=== PATIENT | female | born 1940 | race Caucasian/White ===

== ENCOUNTER 2018-08-01 05:53 | Emergency (ER) | payer MEDICARE, MEDICAID ==
[~2018-08-01] VITALS: Ht 152.4 cm; Wt 69.9 kg
[~2018-08-01 05:53] MED LIST: ACET-822 PO; LEVO50TA8 PO; METF-440; OMEP10CA4 PO; ROSU10TA PO; VERA180C2 PO; VESICARE PO
[2018-08-01] MEDS ORDERED: DOXY100C2 PO (06:18)
[2018-08-01] MEDS ORDERED: SULF1TAB48 PO (06:18)
[2018-08-01] MEDS ORDERED: LEVO75TA7 PO (06:18)
--- NOTE | 2018-08-01 06:30 | NUR ---
Dr. Sofia at bedside for MSE.
[2018-08-01] MEDS ORDERED: ONDANSETRON 4 MG/2 ML VIAL IV ONE (06:45)
[2018-08-01] MEDS ORDERED: ONDANSETRON 4 MG/2 ML VIAL ONE (06:46)
[2018-08-01 06:48] LABS: BASOPHILS % (AUTO) 0.7 % (0.0-2.0); EOSINOPHILS % (AUTO) 0.3 % (0.0-7.0); HEMATOCRIT 40.5 % (31.2-41.9); HEMOGLOBIN 13.4 g/dL (10.9-14.3); LYMPHOCYTES % (AUTO) 13.6 % (20.5-51.5); MEAN CORPUSCULAR HEMOGLOBIN 29.2 uug (24.7-32.8); MEAN CORPUSCULAR HGB CONC 33 g/dL (32.3-35.6); MEAN CORPUSCULAR VOLUME 88.3 fL (75.5-95.3); MONOCYTES # (AUTO) 0.4 K/uL (2.0-10.0); MONOCYTES % (AUTO) 5.5 % (0.0-11.0); NEUTROPHILS # (AUTO) 5.8 K/uL (1.8-8.9); NEUTROPHILS % (AUTO) 79.9 % (38.5-71.5); PLATELET COUNT (AUTO) 224 K/uL (179-408); RED BLOOD CELL COUNT(AUTO) 4.59 MIL/uL (3.63-4.92); WHITE BLOOD COUNT (AUTO) 7.3 K/uL (3.8-11.8)
--- NOTE | 2018-08-01 06:56 | NUR ---
Report given to Mauro knapp.
[2018-08-01 06:57] LABS: CARBON DIOXIDE 27 mmol/L (21-32); CHLORIDE 106 mmol/L (98-107); CREATININE 1.1 mg/dL (0.6-1.3); GLUCOSE 102 mg/dL (74-106); POTASSIUM 3.8 mmol/L (3.5-5.1); UREA NITROGEN, BLOOD 10 mg/dL (7-18)
[2018-08-01 07:02] LABS: ALANINE AMINOTRANSFERASE 19 U/L (14-59); ALKALINE PHOSPHATASE 105 U/L (50-136); ASPARTATE AMINOTRANSFERASE 22 U/L (15-37); BILIRUBIN,DIRECT 0.1 mg/dL (0.0-0.2); BILIRUBIN,TOTAL 0.4 mg/dL (0.2-1.0); LIPASE 189 U/L (73-393); TOTAL PROTEIN, SERUM 7.8 g/dL (6.4-8.2)
[2018-08-01 09:22] LABS: ABG BASE EXCESS 0.1 mmol/L; ABG HCO3 22.9 mmol/L; ABG PH 7.473 (7.350-7.450); ABG PO2 84.1 mmHg (75.0-100.0); ABG SITE RIGHT RADIAL; ABG TOTAL HEMOGLOBIN 13.5 G/dL (12.0-16.0); COHb 1.1 % (0.5-1.5); MetHb 0.3 % (0.0-1.5); O2Hb 95.7 % (94.0-97.0); VENT MODE ROOM AIR
[2018-08-01] MEDS ORDERED: IV NORMAL SALINE 250 ML IV ONE (09:25)
[2018-08-01] MEDS ORDERED: IOHEXOL 350 100 ML INFUS..BTL ONE (09:25)
[2018-08-01] MEDS ORDERED: SWABABLE VALVE TRANSFER SET EA MC ONE (09:26)
[2018-08-01] MEDS ORDERED: NORMAL SALINE FLUSH 10 ML DISP.SYRIN ONE (09:27)
--- NOTE | 2018-08-01 12:01 | NUR ---
Patient discharged to home in stable conditon. Written and verbal after care instructions given. Patient verbalizes understanding of instructions.
== END 2018-08-01 12:02 | disposition home or self-care (01) ==
LOC: ER 05:56
DX: R07.9 Chest pain, unspecified (principal); R11.0 Nausea; R10.9 Unspecified abdominal pain; I10 Essential (primary) hypertension; Z88.0 Allergy status to penicillin
CPT/HCPCS: 36415; 36600; 70030-TC; 71045; 71275; 83690; 85025; 93005; A4663; J2405; J3490; J7050; Q9967

== ENCOUNTER 2018-12-07 13:25 | Inpatient (IN) | payer MEDICARE, MEDICAID ==
[~2018-12-07] VITALS: Ht 157.5 cm; Wt 69.9 kg
[~2018-12-07 13:25] MED LIST changes: +DOXY100C2 PO; -LEVO50TA8 PO; +LEVO75TA7 PO; -OMEP10CA4 PO; +OMEP10CA5 PO; -ROSU10TA PO; +ROSU10TA2 PO; +SULF1TAB48 PO; -VERA180C2 PO
[2018-12-07] MEDS ORDERED: DILT-32 PO (13:56)
[2018-12-07] MEDS ORDERED: LEVO75TA7 PO (13:56)
[2018-12-07] MEDS ORDERED: MIRA25TA PO (13:56)
[2018-12-07] MEDS ORDERED: METF-440 PO (13:56)
[2018-12-07] MEDS ORDERED: SIMV10TA6 PO (13:56)
[2018-12-07] MEDS ORDERED: DIATR MEGLU/DIATRIZOATE SODIUM 30 ML SOLUTION PO ONE (14:00)
[2018-12-07 14:16] LABS: BASOPHILS # (AUTO) 0.1 K/uL (0.0-8.0); BASOPHILS % (AUTO) 0.7 % (0.0-2.0); EOSINOPHILS % (AUTO) 0.2 % (0.0-7.0); HEMATOCRIT 39.4 % (31.2-41.9); HEMOGLOBIN 12.8 g/dL (10.9-14.3); LYMPHOCYTES # (AUTO) 1.6 K/uL (20.0-40.0); LYMPHOCYTES % (AUTO) 20.5 % (20.5-51.5); MEAN CORPUSCULAR HEMOGLOBIN 28.5 uug (24.7-32.8); MEAN CORPUSCULAR HGB CONC 33 g/dL (32.3-35.6); MEAN CORPUSCULAR VOLUME 87.6 fL (75.5-95.3); MONOCYTES # (AUTO) 0.8 K/uL (2.0-10.0); MONOCYTES % (AUTO) 9.7 % (0.0-11.0); NEUTROPHILS # (AUTO) 5.5 K/uL (1.8-8.9); NEUTROPHILS % (AUTO) 68.9 % (38.5-71.5); PLATELET COUNT (AUTO) 238 K/uL (179-408)
[2018-12-07 14:26] LABS: CARBON DIOXIDE 28 mmol/L (21-32); CHLORIDE 107 mmol/L (98-107); CREATININE 0.8 mg/dL (0.6-1.3); GLUCOSE 74 mg/dL (74-106); POTASSIUM 4.2 mmol/L (3.5-5.1); UREA NITROGEN, BLOOD 11 mg/dL (7-18)
[2018-12-07 14:31] LABS: ALANINE AMINOTRANSFERASE 24 U/L (14-59); ALKALINE PHOSPHATASE 109 U/L (50-136); ASPARTATE AMINOTRANSFERASE 23 U/L (15-37); BILIRUBIN,DIRECT 0.1 mg/dL (0.0-0.2); BILIRUBIN,TOTAL 0.4 mg/dL (0.2-1.0); TOTAL PROTEIN, SERUM 7.6 g/dL (6.4-8.2)
[2018-12-07] MEDS ORDERED: DIATR MEGLU/DIATRIZOATE SODIUM 30 ML SOLUTION ONE (14:51)
--- NOTE | 2018-12-07 18:21 | NUR ---
PT TRANSFERED TO FLOOR I NSTABLE CONDITION. PT REMAINED CALM AND COMFORTABLE THE WHOLE ER STAY.PT PAIN TOLERABLE LEVEL.
[2018-12-07 18:25] VITALS: BP 131/48
--- NOTE | 2018-12-07 18:25 | NUR ---
Pt arrived via gurney. Calm, cooperative, ambulatory, aox4, no signs of respiratory distress at this time, denies pain, c/o dizziness. Pt can verbalize what had happened to her. She states that she remembers blacking out in the bathroom. Continue to monitor pt.
[2018-12-07 19:11] LABS: *BILIRUBIN,URIN NEGATIVE (NEGATIVE); *BLOOD, URINE Trace-intact (NEGATIVE); *CLARITY,URINE SLIGHTLY CLOUDY (CLEAR); *COLOR,URINE YELLOW (YELLOW); *KETONES,URINE NEGATIVE (NEGATIVE); *UROBILINOGEN,URINE 0.2 E.U./dl (NORMAL); LEUKOCYTE ESTERASE ,URINE NEGATIVE (NEGATIVE); NITRITE, URINE NEGATIVE (NEGATIVE); PH,URINE 8.5 (5.0-8.0); UGLUCOSE NEGATIVE (NEGATIVE)
[2018-12-07 19:15] LABS: BACTERIA,URINE RARE /HPF (NONE SEEN); RBC,URINE 0-3 /HPF (0-3); SQUAMOUS EPITHELIAL CELL,UR FEW /HPF (NONE SEEN)
--- NOTE | 2018-12-07 19:45 | NUR ---
Rec'd pt in bed awake, A&O x4. No s/s of acute distress noted. Denies pain. On monitoring for s/p syncopal episode at home while on the toilet and abd pain. Pt with device on left upper arm placed by her primary physician to monitor her blood glucose x 1 week per pt. No s/s of complications to site. Call light within reach. All needs met at this time. Will continue to monitor.
[2018-12-07 20:06] VITALS: BP 118/48
[2018-12-07] MEDS ORDERED: DEXTROSE 50% 50 ML DISP.SYRIN IV PRN (21:45)
[2018-12-07] MEDS ORDERED: BISACODYL 10 MG SUPP.RECT RC PRN (21:45)
[2018-12-07] MEDS ORDERED: INSULIN REGULAR, HUMAN 300 UNIT/3 ML VIAL SQ PRN (21:45)
[2018-12-07] MEDS ORDERED: ONDANSETRON 4 MG/2 ML VIAL IV PRN (21:45)
[2018-12-07] MEDS ORDERED: ACETAMINOPHEN 325 MG TABLET PO PRN (21:45)
[2018-12-07] MEDS ORDERED: TEMAZEPAM 7.5 MG CAPSULE PO PRN (21:45)
[2018-12-07] MEDS ORDERED: HYDROCODONE/APAP 5-325MG TABLET PO PRN (21:45)
[2018-12-07] MEDS ORDERED: MAGNESIUM CITRATE 296 ML BOTTLE PO ONE (22:00)
[2018-12-07] MEDS: DOCUSATE SODIUM 100 MG CAPSULE PO SCH (22:44)
[2018-12-07] MEDS ORDERED: MAGNESIUM CITRATE 296 ML BOTTLE ONE (22:56)
[2018-12-08 00:53] VITALS: BP 122/50
[2018-12-08 04:00] VITALS: BP 131/60
[2018-12-08] MEDS ORDERED: MAGNESIUM CITRATE 296 ML BOTTLE PO ONE (06:00)
[2018-12-08] MEDS: PANTOPRAZOLE SODIUM 40 MG TABLET.DR PO SCH (06:05)
[2018-12-08 06:22] LABS: BASOPHILS % (AUTO) 0.8 % (0.0-2.0); EOSINOPHILS # (AUTO) 0.1 K/uL (0.0-0.7); EOSINOPHILS % (AUTO) 1.1 % (0.0-7.0); HEMATOCRIT 35.8 % (31.2-41.9); HEMOGLOBIN 12.1 g/dL (10.9-14.3); LYMPHOCYTES # (AUTO) 1.6 K/uL (20.0-40.0); LYMPHOCYTES % (AUTO) 27.6 % (20.5-51.5); MEAN CORPUSCULAR HEMOGLOBIN 29.5 uug (24.7-32.8); MEAN CORPUSCULAR HGB CONC 34 g/dL (32.3-35.6); MEAN CORPUSCULAR VOLUME 86.9 fL (75.5-95.3); MONOCYTES # (AUTO) 0.6 K/uL (2.0-10.0); MONOCYTES % (AUTO) 11.2 % (0.0-11.0); NEUTROPHILS # (AUTO) 3.4 K/uL (1.8-8.9); NEUTROPHILS % (AUTO) 59.3 % (38.5-71.5); PLATELET COUNT (AUTO) 201 K/uL (179-408); RED BLOOD CELL COUNT(AUTO) 4.12 MIL/uL (3.63-4.92); WHITE BLOOD COUNT (AUTO) 5.7 K/uL (3.8-11.8)
--- NOTE | 2018-12-08 06:24 | NUR ---
Re-ordered Mg Citrate for constipation d/t pt preferred to take it in am. However, pt did not tolerate the taste of it at this time. Pt complained that it is too sour and will give her heartburn. Per pt, the Colace she rec'd last night is already working and that she already had a small BM 30 mins ago. Will follow up with MD. Addendum: 12/08/18 at 0627 by AMI JONES RN Pt only took two sips of the mg citrate.
[2018-12-08] MEDS: BLOOD SUGAR DIAGNOSTIC 1 EACH STRIP VI SCH ×4 (06:30→20:35)
[2018-12-08] MEDS: LEVOTHYROXINE SODIUM 75 MCG TABLET PO SCH (06:30)
[2018-12-08 06:36] LABS: IRON, SERUM 65 ug/dL (50-175)
--- NOTE | 2018-12-08 06:38 | NUR ---
Pt in bed awake, watching TV. Denies abdominal pain. Was able to tolerate ambulating to bathroom during shift without episode of dizziness. All needs met at this time Will cont to monitor. Will endorse to oncoming nurse.
[2018-12-08 06:49] LABS: ALANINE AMINOTRANSFERASE 15 U/L (14-59); ALKALINE PHOSPHATASE 91 U/L (50-136); ASPARTATE AMINOTRANSFERASE 20 U/L (15-37); BILIRUBIN,TOTAL 0.5 mg/dL (0.2-1.0); CARBON DIOXIDE 28 mmol/L (21-32); CHLORIDE 107 mmol/L (98-107); CHOLESTEROL 149 mg/dL (<200); CREATININE 0.8 mg/dL (0.6-1.3); GLUCOSE 102 mg/dL (74-106); HDL CHOLESTEROL 65 mg/dL (40-60); MAGNESIUM 1.6 mg/dL (1.8-2.4); PHOSPHOROUS 3.4 mg/dL (2.5-4.9); POTASSIUM 3.9 mmol/L (3.5-5.1); TOTAL PROTEIN, SERUM 6.6 g/dL (6.4-8.2); TRIGLYCERIDES 82 MG/DL (30-150)
[2018-12-08 07:04] LABS: UREA NITROGEN, BLOOD 10 mg/dL (7-18)
--- NOTE | 2018-12-08 07:15 | NUR ---
ALERT AND ORIENTED AMBULATORY AND BRP , NO SOB NOTED NO PAIN NOTED.
[2018-12-08] MEDS: METFORMIN HCL 500 MG TABLET PO SCH ×2 (08:26→17:20)
[2018-12-08] MEDS: DILTIAZEM HCL CD 120 MG CAP.SR.24H PO SCH (08:29)
[2018-12-08 11:07] VITALS: BP 120/47
[2018-12-08] MEDS: IV NS 1000 ML 1,000 ML IV PRN (11:45)
[2018-12-08 12:02] VITALS: BP_SYST 129; BP_SYST 132; BP_SYST 134; BP_DIAS 51; BP_DIAS 67; BP_DIAS 68
[2018-12-08] MEDS: MAGNESIUM SULFATE/D5W 100 ML IV SCH ×2 (12:50→13:56)
--- NOTE | 2018-12-08 13:25 | NUR ---
GAVE REPORT TO HOMER, RN, PATIENT ON STABLE CONDITION, ABLE TO MAKE NEEDS KNOWN, BRP, WITH 1V ON RIGHT HAND. NO PAIN OR DISCOMFORT AT THIS TIME, NO SOB NOTED AT THIS TIME.NO SYNCOPE EPISODE AT THIS TIME.
--- NOTE | 2018-12-08 13:30 | NUR ---
Pt alert and oriented x 4. Pt ambulatory. PT denies any c/o pain. IV intact. Call light is within reach.
[2018-12-08 15:07] VITALS: BP 112/67
--- NOTE | 2018-12-08 18:30 | NUR ---
Pt is in no acute distress.
[2018-12-08 20:00] VITALS: BP 112/51
[2018-12-08] MEDS: DOCUSATE SODIUM 100 MG CAPSULE PO SCH (20:00)
--- NOTE | 2018-12-08 20:00 | NUR ---
Received patient awake & alert, self care ambulatory. No SOB denies chest pain. IVF infusing well. Tele shows NSR. Vital signs WNL.
[2018-12-08] MEDS ORDERED: ATORVASTATIN 10 MG TABLET PO SCH (22:00)
[2018-12-09] VITALS: BP 127/51
[2018-12-09 04:00] VITALS: BP 124/54
[2018-12-09] MEDS: LEVOTHYROXINE SODIUM 75 MCG TABLET PO SCH (06:33)
[2018-12-09] MEDS: PANTOPRAZOLE SODIUM 40 MG TABLET.DR PO SCH (06:33)
[2018-12-09] MEDS: BLOOD SUGAR DIAGNOSTIC 1 EACH STRIP VI SCH ×2 (06:48→11:52)
[2018-12-09 06:57] LABS: CARBON DIOXIDE 30 mmol/L (21-32); CHLORIDE 107 mmol/L (98-107); CREATININE 0.8 mg/dL (0.6-1.3); GLUCOSE 102 mg/dL (74-106); POTASSIUM 4.2 mmol/L (3.5-5.1); UREA NITROGEN, BLOOD 11 mg/dL (7-18)
[2018-12-09] MEDS: IV NS 1000 ML 1,000 ML IV PRN (06:57)
--- NOTE | 2018-12-09 07:00 | NUR ---
No significant change. Vital signs WNL Sinus rhythm on monitor. No acute distress.
--- NOTE | 2018-12-09 08:00 | NUR ---
Patient awake, alert/oriented x4. ambulatory. Fall precautions implemented. Scheduled MRI brain without contrast at [facility] at noon today. Scheduled ambulance pick-up at 11:45. MRI checklist will be completed. No signs of distress. stable condition. Call light within reach. SR on telemetry.
[2018-12-09 08:31] VITALS: BP 143/74
[2018-12-09] MEDS: METFORMIN HCL 500 MG TABLET PO SCH (08:49)
[2018-12-09] MEDS: DILTIAZEM HCL CD 120 MG CAP.SR.24H PO SCH (08:49)
[2018-12-09] MEDS ORDERED: MYRBETRIQ 25 MG PO SCH (09:00)
[2018-12-09] MEDS ORDERED: [UNRECOGNIZED DRUG - OTHER] PO SCH (09:00)
[2018-12-09 11:11] VITALS: BP 147/71
--- NOTE | 2018-12-09 11:54 | NUR ---
PT's blood sugar 75. offered patient masoud muse. patient is stable. no signs of distress. a/ox4.
[2018-12-09 15:05] VITALS: BP 131/71
--- NOTE | 2018-12-09 16:08 | NUR ---
D/C ORDERS RECEIVED NOTED AND CARRIED OUT,D/C INSTRUCTION AND EDUCATION GIVEN TO THE PT,D/C LEI PER MD ORDERS PER NEURO PT CAN GO HOME,.PT SAID SHE WILL MAKE HER APPOINTMENT WITH HER DR,PT LEFT THE FACILITY VIA [facility] IN STABLE CONDITION
== END 2018-12-09 16:25 | disposition home or self-care (01) | DRG 74 ==
LOC: ER 13:25 → TELE 18:08
PROVIDERS: ADMIT Internal Medicine; ATTEND Internal Medicine
DX: G90.8 Other disorders of autonomic nervous system (principal); D68.59 Other primary thrombophilia; R55 Syncope and collapse; M50.31 Other cervical disc degeneration, high cervical region; M48.02 Spinal stenosis, cervical region; D32.0 Benign neoplasm of cerebral meninges; K44.9 Diaphragmatic hernia without obstruction or gangrene; E66.9 Obesity, unspecified; Z68.28 Body mass index [BMI] 28.0-28.9, adult; K59.09 Other constipation; E03.9 Hypothyroidism, unspecified; I70.0 Atherosclerosis of aorta; Z79.899 Other long term (current) drug therapy; Z80.8 Family history of malignant neoplasm of other organs or systems; E11.9 Type 2 diabetes mellitus without complications; Z79.84 Long term (current) use of oral hypoglycemic drugs; I05.0 Rheumatic mitral stenosis; I10 Essential (primary) hypertension; R01.1 Cardiac murmur, unspecified; S69.92XA Unspecified injury of left wrist, hand and finger(s), initial encounter; W18.11XA Fall from or off toilet without subsequent striking against object, initial encounter; Y93.E8 Activity, other personal hygiene; Y92.012 Bathroom of single-family (private) house as the place of occurrence of the external cause; M19.042 Primary osteoarthritis, left hand
CPT/HCPCS: 36415; 70030-TC; 70450; 70551; 71045; 72125; 73130; 83550; 83605; 83735; 84100; 85025; 85730; 87040; 87086; 93005; 93307; 93880; A4663; G0378; J1815; J3475; J7030; Q9963

== ENCOUNTER 2019-03-28 05:05 | Emergency (ER) | payer MEDICARE, MEDICAID ==
[~2019-03-28] VITALS: Ht 154.9 cm; Wt 68.9 kg
[~2019-03-28 05:05] MED LIST changes: +DILT-32 PO; -DOXY100C2 PO; -METF-440; +METF-440 PO; +MIRA25TA PO; -OMEP10CA5 PO; -SULF1TAB48 PO; -VESICARE PO
--- NOTE | 2019-03-28 05:30 | NUR ---
Received pt. in bed 2B A/O x 4 speaking clearly in full complete sentences. Lying supine on gurney with HOB elevated 45 degrees. Pt. stated to this public relations writer since 0300 am has had left sided neck pain radiating up to mid scalp constant sharp 8/10 today. She also stated she has been under alot of stress last couple of days. Awaiting to be seen by Dr. Acharya.
[2019-03-28] MEDS ORDERED: ACETAMINOPHEN ES 500 MG TABLET PO ONE (05:45)
[2019-03-28] MEDS ORDERED: ACETAMINOPHEN ES 500 MG TABLET ONE (05:54)
--- NOTE | 2019-03-28 06:14 | NUR ---
Pt. went and returned from cat scan via wheelchair with transporter Mickey. Pt. A/O x 4 and speaks clearly in full complete sentences.
== END 2019-03-28 06:55 | disposition home or self-care (01) ==
LOC: ER 05:06
DX: M43.6 Torticollis (principal); M54.12 Radiculopathy, cervical region; E78.00 Pure hypercholesterolemia, unspecified; K21.9 Gastro-esophageal reflux disease without esophagitis; E11.9 Type 2 diabetes mellitus without complications; Z88.0 Allergy status to penicillin; Z79.899 Other long term (current) drug therapy
CPT/HCPCS: 70450; A4663; A9150

== ENCOUNTER 2020-01-05 12:18 | Emergency (ER) | payer MEDICARE, OTHER ==
[~2020-01-05] VITALS: Ht 160 cm; Wt 68.0 kg
[2020-01-05] MEDS ORDERED: IV NORMAL SALINE 1000 ML BAG IV ONE (12:45)
[2020-01-05 13:04] LABS: BASOPHILS # (AUTO) 0.1 K/uL (0.0-8.0); BASOPHILS % (AUTO) 0.4 % (0.0-2.0); EOSINOPHILS # (AUTO) 0.1 K/uL (0.0-0.7); EOSINOPHILS % (AUTO) 0.4 % (0.0-7.0); HEMATOCRIT 39.8 % (31.2-41.9); HEMOGLOBIN 13.1 g/dL (10.9-14.3); LYMPHOCYTES # (AUTO) 1.6 K/uL (20.0-40.0); LYMPHOCYTES % (AUTO) 13.5 % (20.5-51.5); MEAN CORPUSCULAR HEMOGLOBIN 28.8 uug (24.7-32.8); MEAN CORPUSCULAR HGB CONC 33 g/dL (32.3-35.6); MEAN CORPUSCULAR VOLUME 87.4 fL (75.5-95.3); MONOCYTES # (AUTO) 1.1 K/uL (2.0-10.0); MONOCYTES % (AUTO) 8.7 % (0.0-11.0); NEUTROPHILS # (AUTO) 9.4 K/uL (1.8-8.9); PLATELET COUNT (AUTO) 240 K/uL (179-408); RED BLOOD CELL COUNT(AUTO) 4.56 MIL/uL (3.63-4.92); WHITE BLOOD COUNT (AUTO) 12.2 K/uL (3.8-11.8)
[2020-01-05 13:18] LABS: ALANINE AMINOTRANSFERASE 21 U/L (14-59); ALKALINE PHOSPHATASE 94 U/L (50-136); ASPARTATE AMINOTRANSFERASE 20 U/L (15-37); BILIRUBIN,TOTAL 0.6 mg/dL (0.2-1.0); CARBON DIOXIDE 23 mmol/L (21-32); CHLORIDE 106 mmol/L (98-107); CREATININE 0.8 mg/dL (0.6-1.3); GLUCOSE 113 mg/dL (74-106); LIPASE 180 U/L (73-393); POTASSIUM 3.9 mmol/L (3.5-5.1); TOTAL PROTEIN, SERUM 7.5 g/dL (6.4-8.2); UREA NITROGEN, BLOOD 12 mg/dL (7-18)
[2020-01-05 13:20] LABS: BILIRUBIN,DIRECT < 0.1 mg/dL (0.0-0.2)
[2020-01-05 13:46] LABS: *BILIRUBIN,URIN NEGATIVE (NEGATIVE); *BLOOD, URINE 2+ (NEGATIVE); *CLARITY,URINE SLIGHTLY CLOUDY (CLEAR); *COLOR,URINE YELLOW (YELLOW); *KETONES,URINE NEGATIVE (NEGATIVE); *UROBILINOGEN,URINE 0.2 E.U./dl (NORMAL); LEUKOCYTE ESTERASE ,URINE 1+ (NEGATIVE); NITRITE, URINE POSITIVE (NEGATIVE); UGLUCOSE NEGATIVE (NEGATIVE)
[2020-01-05 13:49] LABS: BACTERIA,URINE MODERATE /HPF (NONE SEEN); SQUAMOUS EPITHELIAL CELL,UR FEW /HPF (NONE SEEN); WBC,URINE 20-50 /HPF (0-3)
[2020-01-05] MEDS ORDERED: SULFAMETH/TRIMETH 800/160 MG TABLET PO ONE (14:30)
[2020-01-05] MEDS ORDERED: SULFAMETH/TRIMETH 800/160 MG TABLET ONE ×2 (14:31→14:32)
--- NOTE | 2020-01-05 14:32 | NUR ---
Patient accidentally dropped the 1st Bactrim tablet on the floor. This tablet was wasted accordingly. Another tablet was removed from the Pyxis machine. Patient discharged to home in stable condition with steady gait. Written and verbal after care instructions given to patient. Patient verbalized understanding & compliance of instructions. Patient said, "I feel much better. Thank you very much. You all saved my life." notified.
== END 2020-01-05 14:38 | disposition home or self-care (01) ==
LOC: ER 12:18
DX: N39.0 Urinary tract infection, site not specified (principal); K21.9 Gastro-esophageal reflux disease without esophagitis; E78.5 Hyperlipidemia, unspecified; E11.9 Type 2 diabetes mellitus without complications; Z88.0 Allergy status to penicillin; Z79.899 Other long term (current) drug therapy
CPT/HCPCS: 36415; 83690; 85025; 87077; 87086; A4663; J7030

== ENCOUNTER 2020-11-12 10:39 | Emergency (ER) | payer MEDICARE, OTHER ==
[~2020-11-12] VITALS: Ht 160 cm; Wt 64.9 kg
--- NOTE | 2020-11-12 10:59 | NUR ---
Right lower back pain radiating to right knee, 5/10, when lying still. Ongoing > 2 weeks. Pt taking Tylenol w/o relief. Pt denies CP, SOB, dizziness, n/v, no other complaints, no distress noted.
[2020-11-12] MEDS ORDERED: DEXAMETHASONE SOD PHOSPHATE 10 MG INJ ONE (12:28)
[2020-11-12] MEDS ORDERED: DEXAMETHASONE SOD PHOSPHATE 4 MG INJ IM ONE (12:30)
--- NOTE | 2020-11-12 12:33 | NUR ---
Patient discharged to home in stable condition. Written and verbal after care instructions given. Patient verbalizes understanding of instructions. Stressed follow up or return to ER for worsening s/s.
[2020-11-12 12:34] VITALS: BP 151/60
== END 2020-11-12 12:35 | disposition home or self-care (01) ==
LOC: ER 10:39
DX: M54.5 Low back pain (principal); M25.561 Pain in right knee; E11.9 Type 2 diabetes mellitus without complications; Z88.0 Allergy status to penicillin; E05.90 Thyrotoxicosis, unspecified without thyrotoxic crisis or storm; K21.9 Gastro-esophageal reflux disease without esophagitis; Z79.84 Long term (current) use of oral hypoglycemic drugs; Z79.899 Other long term (current) drug therapy; M19.90 Unspecified osteoarthritis, unspecified site
CPT/HCPCS: 72131; 96372; 99284; J1100; A4663

== ENCOUNTER 2020-11-18 12:52 | Emergency (ER) | payer MEDICARE, OTHER ==
[~2020-11-18] VITALS: Ht 152.4 cm; Wt 68.9 kg
[2020-11-18] MEDS ORDERED: CYCLOBENZAPRINE HCL 10 MG TABLET PO ONE (13:15)
[2020-11-18] MEDS ORDERED: HYDROCODONE/APAP 5-325MG TABLET PO ONE (13:15)
[2020-11-18] MEDS ORDERED: CYCLOBENZAPRINE HCL 10 MG TABLET ONE (13:34)
[2020-11-18] MEDS ORDERED: HYDROCODONE/APAP 5-325MG TABLET ONE (13:35)
--- NOTE | 2020-11-18 13:53 | NUR ---
DR NORWOOD EVALUATED THE PT. PT WAS MEDICATED ACCORDING TO ER MD ORDERS. NO NO S/S OF ADVERSE REACTION.
[2020-11-18 14:30] VITALS: BP 131/71
--- NOTE | 2020-11-18 14:30 | NUR ---
PT WAS D/C'd TO HOME. D/C INSTRUCTIONS GIVEN TO THE PT BY DR NORWOOD.
== END 2020-11-18 14:36 | disposition home or self-care (01) ==
LOC: ER 12:56
DX: M48.061 Spinal stenosis, lumbar region without neurogenic claudication (principal); M54.16 Radiculopathy, lumbar region; M25.561 Pain in right knee; M48.56XD Collapsed vertebra, not elsewhere classified, lumbar region, subsequent encounter for fracture with routine healing; M11.261 Other chondrocalcinosis, right knee; M85.861 Other specified disorders of bone density and structure, right lower leg; E11.9 Type 2 diabetes mellitus without complications; K21.9 Gastro-esophageal reflux disease without esophagitis; Z79.899 Other long term (current) drug therapy; Z79.84 Long term (current) use of oral hypoglycemic drugs; Z88.0 Allergy status to penicillin; E05.90 Thyrotoxicosis, unspecified without thyrotoxic crisis or storm; I51.9 Heart disease, unspecified
CPT/HCPCS: A4663